=== PATIENT | male | born 1980 | race Caucasian/White ===

== ENCOUNTER 2022-01-14 00:31 | Emergency (ER) | payer MEDICAID, OTHER ==
[2022-01-14 01:39] LABS: #Basophils 0.2 thou/uL (0.0-0.2); #Eosinphils 0.3 thou/uL (0.0-0.7); #Lymphocytes 4.9 thou/uL (1.20-3.40); #Monocytes 1.3 thou/uL (0.11-0.59); #Neutrophils 6.4 thou/uL (1.40-6.50); %Basophils 1.8 % (0.0-1.0); %Eosinophils 2.5 % (0.0-10.0); %Lymphocytes 37.5 % (21.0-51.0); %Monocytes 9.9 % (0.0-10.0); %Neutrophils 48.4 % (42.0-75.0); Hemoglobin 16.6 g/dL (14.0-18.0); Mean Corpuscular HGB CONC 32.9 g/dL (32.0-36.0); Mean Corpuscular Hemoglobin 29.4 pg (27.0-31.0); Mean Corpuscular Volume 89.4 fL (78.0-98.0); Mean Platelet Volume 7.8 fL (7.4-10.4); Platelet Count 264 thou/uL (130-400); RBC Distribution Width 12.1 % (11.5-14.5); Red Blood Cell (RBC) Count 5.65 mill/uL (4.70-6.10); White Blood Cell (WBC) Count 13.2 thou/uL (4.8-10.8)
[2022-01-14 02:01] LABS: ALT (SGPT) 38 U/L (8-55); AST (SGOT) 22 U/L (5-34); Alkaline Phosphatase 82 U/L (40-110); Anion Gap 13 mmol/L (10-20); BUN (Urea Nitrogen) 14 mg/dL (8.9-20.6); Bilirubin, Total 0.4 mg/dL (0.2-1.2); Calc. Creatinine Clearance 0 mL/min (70-130); Calcium 9.1 mg/dL (7.8-10.44); Carbon Dioxide 24 mmol/L (22-29); Chloride 104 mmol/L (98-107); Estimated GFR 102; Globulin 2.6 g/dL (2.4-3.5); Glucose 106 mg/dL (70-105); Protein, Total 6.6 g/dL (6.0-8.3); Sodium 137 mmol/L (136-145)
[2022-01-14] MEDS ORDERED: Doxycycline 100 MG CAP ONE (03:33)
[2022-01-14] MEDS ORDERED: predniSONE 20 MG TAB ONE (03:33)
== END 2022-01-14 03:35 | disposition home or self-care (01) ==
LOC: BURERS 00:31
DX: J22 Unspecified acute lower respiratory infection (principal); Z20.822 Contact with and (suspected) exposure to COVID-19
CPT/HCPCS: 36415; 71045; 71250; 80053; 83880; 84484; 85025; J7512; U0003; U0005